=== PATIENT | male | born 1960 | race Caucasian/White ===

== ENCOUNTER 2025-04-28 10:36 | Outpatient (CLI) | payer OTHER | END 2025-04-28 10:37 | disposition home or self-care (01) | LOC: BICCT 10:36 | PROVIDERS: ATTEND Family Medicine | DX: Z12.2 Encounter for screening for malignant neoplasm of respiratory organs (principal); F17.218 Nicotine dependence, cigarettes, with other nicotine-induced disorders; I25.10 Atherosclerotic heart disease of native coronary artery without angina pectoris; S22.41XK Multiple fractures of ribs, right side, subsequent encounter for fracture with nonunion | CPT/HCPCS: 71271 ==